=== PATIENT | male | born 1990 | race Caucasian/White ===

== ENCOUNTER 2023-01-17 14:25 | Emergency (ER) | payer SELFPAY ==
[~2023-01-17] VITALS: Ht 182 cm; Wt 68.0 kg
[2023-01-17 14:32] VITALS: BP 134/73
--- NOTE | 2023-01-17 14:58 | ED EENT ---
History of Present Illness General Chief Complaint: Ear Problems Stated Complaint: LEFT EAR PAIN, POSSIBLE BUG BITE Nursing Triage Note: PT TO ED W/ C/O LT EAR PAIN ONSET THIS AM. PT REPORTS THINKS MAY HAVE A "BUG" IN HIS EAR. NO OTHER C/O VOICED. Source: patient Exam Limitations: no limitations History of Present Illness Date Seen by Provider: Jan 17, 2023 Time Seen by Provider: 14:55 Initial Comments Patient is a 32-year-old male who presents ED with left ear pain. States he woke up this morning hearing a buzzing and crawling sound in his left ear. Concern for bug. Patient immediately flushed with hot water. Continue having ear pain so he use vegetable oil and use a cottonball. Patient is unclear if something crawled into his ear. Denies of any outer ear redness or bleeding of his ear canal. Denies muffling of sound, ear ringing, headache, dizziness, nausea, vomiting. Allergies and Home Medications Allergies Coded Allergies: Cephalosporins (Unverified Allergy, Unknown, 01/17/23) Uncoded Allergies: PCN (Allergy, Unknown, 01/17/23) Patient Home Medication List Home Medication List Reviewed: Yes Ofloxacin (Ofloxacin) 0.3 % Drops, 5 DROPS OT BID Prescribed by: PEYTON CARMEN on 01/17/23 1172 Review of Systems Review of Systems Constitutional: No chills, No diaphoresis, No fever, No malaise, No weakness Eyes: Denies Blindness Ears: Denies Dizziness; Pain; Denies Tinnitus, Denies Bloody Discharge, Denies Clear Discharge, Denies Purulent Discharge Nose: denies clots, denies congestion Mouth: denies clots, denies loose teeth Throat: denies pain, denies swelling, denies neck stiffness, denies hoarse Respiratory: No cough, No dyspnea on exertion Cardiovascular: No chest pain Gastrointestinal: No abdominal pain, No diarrhea, No nausea, No vomiting Musculoskeletal: No back pain, No joint pain Skin: No change in color Past Soqfkit-Nynhpa-Jcrfbi Hx Patient Social History Tobacco Use?: Yes Tobacco type used: Cigarettes Smoking Status: Current Everyday Smoker Use of E-Cig and/or Vaping dev: No Substance use?: Yes Substance type: Marijuana Substance frequency: Once in a while Alcohol Use?: No Pt feels they are or have been: No Past Medical History Surgery/Hospitalization HX: DENIED Physical Exam Vital Signs Vital Signs - First Documented 01/17/23 14:32 Temp 36.5 Pulse 90 Resp 16 B/P (MAP) 134/73 (93) Pulse Ox 99 O2 Delivery Room Air Height, Weight, BMI Height: '" Weight: lbs. oz. 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 On exam no evidence of insect. Ear canal erythema, swelling without evidence of abscess.. Left TM with mild erythema. No evidence of perforation perforation. concern for ear irritation possibly from flushing versus otitis externa. Due to the external ear canal inflammation patient will be discharged with ofloxacin eardrop. Avoid any irritants such as water, vegetable oil. Continue monitoring symptoms. If any worsening pain to return back to ED. Impression Primary Impression: Otitis externa Disposition: HOME, SELF-CARE Condition: Stable Departure-Patient Inst. Decision time for Depature: 14:57 Referrals: [facility]/FUAD JAIN,LOCAL PHYSICIAN (PCP) Primary Care Physician Patient Instructions: Outer Ear Infection (DC) Scripts Ofloxacin (Ofloxacin) 0.3 % Drops 5 DROPS OT BID for 7 Days, #5 ML Prov: ABDOUL GALDAMEZ 01/17/23 ABDOUL GALDAMEZ Jan 17, 2023 14:58
[2023-01-17] MEDS ORDERED: OFLO5DRO33 OT (14:59)
== END 2023-01-17 15:00 | disposition home or self-care (01) ==
LOC: ER 14:28
DX: H60.92 Unspecified otitis externa, left ear (principal); F17.210 Nicotine dependence, cigarettes, uncomplicated; Z88.1 Allergy status to other antibiotic agents
CPT/HCPCS: 99282